=== PATIENT | female | born 1940 | race Caucasian/White ===

== ENCOUNTER 2017-08-03 17:33 | Inpatient (IN) | payer MEDICARE, OTHER ==
[~2017-08-03] VITALS: Ht 167.6 cm; Wt 100.0 kg
[2017-08-03] MEDS ORDERED: normal saline 1000ML IV soln IV ONE (17:35)
[2017-08-03] MEDS ORDERED: methylPREDNISolone sod succ 125mg/2ml vial IV ONE (17:45)
[2017-08-03] MEDS ORDERED: magnesium 2GM in 50ml NS 50 ML IV ONE ×2 (17:45→18:45)
[2017-08-03] MEDS ORDERED: azithromycin/NS 500mg/250ml 250 ML IV ONE (17:55)
[2017-08-03] MEDS ORDERED: CefTRIAXone 2gm/NS 100ml IVPB 100 ML IV ONE (17:55)
[2017-08-03] MEDS ORDERED: ipratropium/albuterol 3ml nebule NEB ONE (18:00)
[2017-08-03 18:24] LABS: BASOPHILS % (AUTO) 0.2 % (0-1); EOSINOPHILS # (AUTO) 0.4 X10'3 (0-0.9); EOSINOPHILS % (AUTO) 2.2 % (0-6); HEMOGLOBIN 12.8 g/dl (12.0-16.0); LYMPHOCYTES # (AUTO) 1.9 X10'3 (1.1-4.8); LYMPHOCYTES % (AUTO) 9.9 % (21-51); MEAN CORPUSCULAR HEMOGLOBIN 24.1 PG (27.0-31.0); MEAN CORPUSCULAR HGB CONC 31.1 % (33.0-36.5); MEAN CORPUSCULAR VOLUME 77.7 FL (78-98); MONOCYTES # (AUTO) 1.4 X10'3 (0-0.9); MONOCYTES % (AUTO) 7.4 % (2-12); NEUTROPHILS # (AUTO) 15.7 X10'3 (1.8-7.7); NEUTROPHILS % (AUTO) 80.3 % (42-75); PLATELET COUNT 408 X10'3 (140-440); RED BLOOD COUNT 5.28 X10'6 (4.20-5.60); RED CELL DISTRIBUTION WIDTH 20.3 % (11.5-14.5); WHITE BLOOD COUNT 19.5 X10'3 (4.5-11.0)
[2017-08-03 18:31] LABS: ABG BASE EXCESS -0.5 mmol/L (-2.0-3.0); ABG HCO3 24.6 mmol/L (22.0-26.0); ABG OXYGEN SATURATION 95.3 % (95-98); ABG PCO2 (T) 42.2 mmHg (32.0-45.0); ABG PH (T) 7.384 (7.350-7.450); ABG PO2 (T) 78.3 mmHg (83-108); ALLEN'S TEST Positive; FCOHb 2.1 % (0.5-1.5); FLOW 5 L/min; FMetHb 0.1 % (0.3-1.12); FO2Hb 93.2 % (94-100); TOTAL HEMOGLOBIN 12.9 G/dl (12.0-16.0)
[2017-08-03 18:32] LABS: PROTHROMBIN TIME 10.8 SECONDS (9.0-12.0)
[2017-08-03] MEDS ORDERED: vancomycin/NS 1 GM ADD-VANTAGE 250 ML IV ONE (18:40)
[2017-08-03 18:50] LABS: ALANINE AMINOTRANSFERASE 25 U/L (12-78); ALBUMIN/GLOBULIN RATIO 0.5 (1.1-1.5); ALKALINE PHOSPHATASE 207 IU/L (46-116); ANION GAP 8 (8-16); ASPARTATE AMINO TRANSFERASE 23 U/L (10-37); BLOOD UREA NITROGEN 38 MG/DL (7-18); BUN/CREATININE RATIO 27.1 (6.6-38.0); CALCIUM 10.7 MG/DL (8.5-10.1); CHLORIDE 96 MMOL/L (99-107); GLUCOSE 143 MG/DL (70-104); MAGNESIUM 1.8 MG/DL (1.5-2.4); POTASSIUM 4.1 MMOL/L (3.5-5.1); SODIUM 133 MMOL/L (135-145); TOTAL CARBON DIOXIDE 28.8 MMOL/L (24-32); TOTAL PROTEIN 8.5 G/DL (6.4-8.2); eGFR 36 ML/MIN
[2017-08-03] MEDS ORDERED: magnesium hydroxide 30ml (MOM) UD suspension PO PRN (19:35)
[2017-08-03] MEDS ORDERED: ondansetron/PF 4mg/2ml inj IV PRN (19:35)
[2017-08-03] MEDS ORDERED: mag hydrox/Alum hydrox/simeth 30ml oral suspension PO PRN (19:35)
[2017-08-03] MEDS ORDERED: acetaminophen 325mg tablet PO PRN (19:35)
[2017-08-03] MEDS ORDERED: albuterol 2.5 MG/3 ML nebule NEB PRN (19:45)
[2017-08-03] MEDS ORDERED: GUAI600T45 PO (19:57)
[2017-08-03] MEDS ORDERED: ATOR40TA PO (19:57)
[2017-08-03] MEDS ORDERED: METF500T PO (19:57)
[2017-08-03] MEDS ORDERED: PANT-47 PO (19:57)
[2017-08-03] MEDS ORDERED: BUDE10.2 INH (19:57)
[2017-08-03 20:00] VITALS: BP 134/80
[2017-08-03 20:32] LABS: CLARITY,URINE Clear (Clear); COLOR,URINE Dark Yellow (Yellow); GLUCOSE, URINE Negative (Neg); KETONES,URINE 15 mg/dl (Neg); LEUKOCYTE ESTERASE ,URINE Negative (Neg); NITRITES, URINE Negative (Neg); OCCULT BLOOD,URINE Negative (Neg); PROTEIN,URINE 100 mg/dl (Neg)
[2017-08-03 20:33] LABS: UA COLLECTION TYPE FOLEY CATH
[2017-08-03 20:42] LABS: AMORPHOUS URATES 4+; BACTERIA,URINE FEW /HPF (Neg); RBC,URINE 0-2 /HPF (0-2); SQUAMOUS EPITHELIAL CELL,UR FEW /LPF (FEW); WBC,URINE 0-4 /HPF (0-4)
[2017-08-03 21:00] VITALS: BP 106/51
[2017-08-03] MEDS: normal saline 1000ml 1,000 ML IV SCH (21:45)
[2017-08-03 23:00] VITALS: BP 104/57
[2017-08-04] MEDS: methylPREDNISolone sod succ/PF 40mg inj. IV SCH ×4 (00:48→23:45)
[2017-08-04] MEDS: heparin, porcine 5000 units/ml vial SQ SCH ×4 (00:48→23:46)
[2017-08-04 07:00] VITALS: BP 133/68
[2017-08-04 07:00] LABS: BASOPHILS % (AUTO) 0.3 % (0-1); EOSINOPHILS # (AUTO) 0.3 X10'3 (0-0.9); HEMATOCRIT 34.4 % (35.0-45.0); HEMOGLOBIN 10.8 g/dl (12.0-16.0); LYMPHOCYTES # (AUTO) 0.3 X10'3 (1.1-4.8); MEAN CORPUSCULAR HEMOGLOBIN 24.1 PG (27.0-31.0); MEAN CORPUSCULAR HGB CONC 31.4 % (33.0-36.5); MEAN CORPUSCULAR VOLUME 76.7 FL (78-98); MEAN PLATELET VOLUME 8.1 FL (7.4-10.4); MONOCYTES # (AUTO) 0.2 X10'3 (0-0.9); MONOCYTES % (AUTO) 1.3 % (2-12); NEUTROPHILS # (AUTO) 13.3 X10'3 (1.8-7.7); NEUTROPHILS % (AUTO) 94.4 % (42-75); PLATELET COUNT 428 X10'3 (140-440); RED BLOOD COUNT 4.49 X10'6 (4.20-5.60); WHITE BLOOD COUNT 14.1 X10'3 (4.5-11.0)
[2017-08-04 07:22] LABS: ALANINE AMINOTRANSFERASE 19 U/L (12-78); ALBUMIN 2.5 G/DL (3.4-5.0); ALBUMIN/GLOBULIN RATIO 0.5 (1.1-1.5); ALKALINE PHOSPHATASE 161 IU/L (46-116); ANION GAP 6 (8-16); ASPARTATE AMINO TRANSFERASE 13 U/L (10-37); BILIRUBIN,TOTAL 0.4 MG/DL (0.1-1.0); BLOOD UREA NITROGEN 32 MG/DL (7-18); BUN/CREATININE RATIO 29.1 (6.6-38.0); CALCIUM 9.8 MG/DL (8.5-10.1); CHLORIDE 100 MMOL/L (99-107); GLUCOSE 299 MG/DL (70-104); POTASSIUM 4.4 MMOL/L (3.5-5.1); SODIUM 135 MMOL/L (135-145); TOTAL CARBON DIOXIDE 28.7 MMOL/L (24-32); TOTAL PROTEIN 7.3 G/DL (6.4-8.2); TROPONIN I < 0.04 NG/ML (0.0-0.05); eGFR 48 ML/MIN
[2017-08-04 07:23] LABS: HEMOGLOBIN A1C 6.6 % (4.5-6.2)
[2017-08-04] MEDS: azithromycin 250mg tablet PO SCH (07:26)
[2017-08-04] MEDS: cefTRIAXone 1g/NS 100ml IVPB 100 ML IV SCH (07:26)
[2017-08-04] MEDS: levoFLOXACIN 250mg tablet PO SCH (07:27)
[2017-08-04] MEDS: HYDROcodone/acetaminophen 5mg/325mg tablet PO PRN ×3 (07:35→23:51)
[2017-08-04] MEDS ORDERED: MESSAGE TO PHARMACY PO ONE (09:35)
[2017-08-04] MEDS ORDERED: dextrose 50%-water 50ml dispensing syringe IV PRN ×2 (09:35)
[2017-08-04] MEDS ORDERED: glucagon, human recombinant 1mg kit SUBCUT PRN (09:35)
[2017-08-04] MEDS ORDERED: dextrose ORAL solution 15 GM/59 ML bottle PO PRN ×2 (09:35)
[2017-08-04 11:00] VITALS: BP 128/63
[2017-08-04] MEDS: insulin Lispro (HumaLOG) vial - multi-dose SQ SCH ×2 (13:37→18:54)
[2017-08-04] MEDS: normal saline 1000ml 1,000 ML IV SCH (15:25)
[2017-08-04 20:00] VITALS: BP 138/77
[2017-08-04] MEDS: insulin glargine (Lantus) pen - multi-dose SQ SCH (21:14)
[2017-08-04] MEDS: guaiFENesin ER 600mg tablet PO SCH (21:14)
[2017-08-04 23:00] VITALS: BP 125/56
[2017-08-05 06:13] LABS: BASOPHILS % (AUTO) 0 % (0-1); EOSINOPHILS # (AUTO) 0.3 X10'3 (0-0.9); HEMATOCRIT 31.6 % (35.0-45.0); HEMOGLOBIN 9.7 g/dl (12.0-16.0); LYMPHOCYTES # (AUTO) 0.4 X10'3 (1.1-4.8); LYMPHOCYTES % (AUTO) 2.9 % (21-51); MEAN CORPUSCULAR HEMOGLOBIN 24.1 PG (27.0-31.0); MEAN CORPUSCULAR HGB CONC 30.7 % (33.0-36.5); MEAN CORPUSCULAR VOLUME 78.4 FL (78-98); MEAN PLATELET VOLUME 8.3 FL (7.4-10.4); MONOCYTES # (AUTO) 0.4 X10'3 (0-0.9); MONOCYTES % (AUTO) 2.9 % (2-12); NEUTROPHILS % (AUTO) 92.2 % (42-75); PLATELET COUNT 353 X10'3 (140-440); RED BLOOD COUNT 4.03 X10'6 (4.20-5.60); RED CELL DISTRIBUTION WIDTH 20.3 % (11.5-14.5)
[2017-08-05 06:45] LABS: ALANINE AMINOTRANSFERASE 18 U/L (12-78); ALBUMIN 2.2 G/DL (3.4-5.0); ALBUMIN/GLOBULIN RATIO 0.5 (1.1-1.5); ALKALINE PHOSPHATASE 125 IU/L (46-116); ANION GAP 5 (8-16); ASPARTATE AMINO TRANSFERASE 11 U/L (10-37); BILIRUBIN,TOTAL 0.2 MG/DL (0.1-1.0); BLOOD UREA NITROGEN 36 MG/DL (7-18); CALCIUM 10.4 MG/DL (8.5-10.1); CHLORIDE 106 MMOL/L (99-107); GLUCOSE 249 MG/DL (70-104); POTASSIUM 4.9 MMOL/L (3.5-5.1); SODIUM 138 MMOL/L (135-145); TOTAL CARBON DIOXIDE 27.1 MMOL/L (24-32); TOTAL PROTEIN 6.8 G/DL (6.4-8.2); eGFR 61 ML/MIN
[2017-08-05] MEDS: pantoprazole 40mg Tablet.DR PO SCH (07:29)
[2017-08-05] MEDS: LACTOBACILLUS RHAMNOSUS GG 15 billion unit sprinkle caps PO SCH (07:29)
[2017-08-05] MEDS: cefTRIAXone 1g/NS 100ml IVPB 100 ML IV SCH (07:29)
[2017-08-05] MEDS: methylPREDNISolone sod succ/PF 40mg inj. IV SCH ×2 (07:30→17:04)
[2017-08-05] MEDS: levoFLOXACIN 250mg tablet PO SCH (07:30)
[2017-08-05] MEDS: guaiFENesin ER 600mg tablet PO SCH ×2 (07:30→20:05)
[2017-08-05] MEDS: azithromycin 250mg tablet PO SCH (07:30)
[2017-08-05] MEDS: heparin, porcine 5000 units/ml vial SQ SCH ×2 (07:31→17:07)
[2017-08-05 07:39] VITALS: BP 121/70
[2017-08-05] MEDS: insulin Lispro (HumaLOG) vial - multi-dose SQ SCH ×3 (09:26→19:10)
[2017-08-05] MEDS: normal saline 1000ml 1,000 ML IV SCH (12:59)
[2017-08-05 13:12] VITALS: BP 121/72
[2017-08-05 19:00] VITALS: BP 152/75
[2017-08-05] MEDS: HYDROcodone/acetaminophen 5mg/325mg tablet PO PRN (20:06)
[2017-08-05] MEDS: nystatin 15 GM powder TP SCH (20:07)
[2017-08-05] MEDS: insulin glargine (Lantus) pen - multi-dose SQ SCH (21:28)
[2017-08-05 23:08] VITALS: BP 148/75
[2017-08-06] MEDS: heparin, porcine 5000 units/ml vial SQ SCH ×3 (00:17→16:28)
[2017-08-06] MEDS: methylPREDNISolone sod succ/PF 40mg inj. IV SCH ×2 (00:17→06:49)
[2017-08-06] MEDS: LACTOBACILLUS RHAMNOSUS GG 15 billion unit sprinkle caps PO SCH (06:49)
[2017-08-06] MEDS: cefTRIAXone 1g/NS 100ml IVPB 100 ML IV SCH (06:49)
[2017-08-06] MEDS: pantoprazole 40mg Tablet.DR PO SCH (06:50)
[2017-08-06] MEDS: levoFLOXACIN 500mg tablet PO SCH (06:50)
[2017-08-06] MEDS: HYDROcodone/acetaminophen 5mg/325mg tablet PO PRN ×3 (06:50→19:21)
[2017-08-06] MEDS: azithromycin 250mg tablet PO SCH (06:50)
[2017-08-06] MEDS: guaiFENesin ER 600mg tablet PO SCH ×2 (06:52→19:12)
[2017-08-06] MEDS: nystatin 15 GM powder TP SCH ×3 (06:52→19:30)
[2017-08-06] MEDS: normal saline 1000ml 1,000 ML IV SCH (06:59)
[2017-08-06 07:00] VITALS: BP 148/70
[2017-08-06 07:01] LABS: ALANINE AMINOTRANSFERASE 17 U/L (12-78); ALBUMIN 2.4 G/DL (3.4-5.0); ALBUMIN/GLOBULIN RATIO 0.5 (1.1-1.5); ALKALINE PHOSPHATASE 119 IU/L (46-116); ANION GAP 6 (8-16); ASPARTATE AMINO TRANSFERASE 11 U/L (10-37); BILIRUBIN,TOTAL 0.2 MG/DL (0.1-1.0); BLOOD UREA NITROGEN 35 MG/DL (7-18); CALCIUM 10.4 MG/DL (8.5-10.1); CHLORIDE 106 MMOL/L (99-107); GLUCOSE 217 MG/DL (70-104); POTASSIUM 4.8 MMOL/L (3.5-5.1); SODIUM 143 MMOL/L (135-145); TOTAL CARBON DIOXIDE 31.5 MMOL/L (24-32); eGFR 54 ML/MIN
[2017-08-06 07:15] LABS: BASOPHILS % (AUTO) 0.1 % (0-1); EOSINOPHILS % (AUTO) 0 % (0-6); HEMOGLOBIN 11.1 g/dl (12.0-16.0); LYMPHOCYTES # (AUTO) 0.5 X10'3 (1.1-4.8); LYMPHOCYTES % (AUTO) 4.1 % (21-51); MEAN CORPUSCULAR HEMOGLOBIN 25.2 PG (27.0-31.0); MEAN CORPUSCULAR HGB CONC 32.6 % (33.0-36.5); MEAN CORPUSCULAR VOLUME 77.4 FL (78-98); MEAN PLATELET VOLUME 8.5 FL (7.4-10.4); MONOCYTES # (AUTO) 0.2 X10'3 (0-0.9); MONOCYTES % (AUTO) 1.9 % (2-12); NEUTROPHILS # (AUTO) 11.8 X10'3 (1.8-7.7); NEUTROPHILS % (AUTO) 93.9 % (42-75); PLATELET COUNT 423 X10'3 (140-440); RED BLOOD COUNT 4.39 X10'6 (4.20-5.60); RED CELL DISTRIBUTION WIDTH 18.8 % (11.5-14.5); WHITE BLOOD COUNT 12.5 X10'3 (4.5-11.0)
[2017-08-06] MEDS: fluticasone/vilanterol 200mcg/25mcg inhaler IH SCH (08:21)
[2017-08-06] MEDS: insulin Lispro (HumaLOG) vial - multi-dose SQ SCH ×3 (08:37→19:20)
[2017-08-06] MEDS: furosemide 40mg/4ml inj IV SCH ×2 (08:57→19:12)
[2017-08-06 11:00] VITALS: BP 128/74
[2017-08-06 19:00] VITALS: BP 119/76
[2017-08-06] MEDS: docusate sod 100mg capsule PO SCH (19:12)
[2017-08-06] MEDS: insulin glargine (Lantus) pen - multi-dose SQ SCH (21:23)
[2017-08-07] VITALS: BP 139/70
[2017-08-07] MEDS: heparin, porcine 5000 units/ml vial SQ SCH ×3 (00:39→17:39)
[2017-08-07 06:08] LABS: BASOPHILS % (AUTO) 0.5 % (0-1); EOSINOPHILS % (AUTO) 0 % (0-6); HEMATOCRIT 37.7 % (35.0-45.0); HEMOGLOBIN 11.7 g/dl (12.0-16.0); LYMPHOCYTES % (AUTO) 9.7 % (21-51); MEAN CORPUSCULAR HEMOGLOBIN 24.1 PG (27.0-31.0); MEAN CORPUSCULAR HGB CONC 31.1 % (33.0-36.5); MEAN CORPUSCULAR VOLUME 77.5 FL (78-98); MEAN PLATELET VOLUME 7.8 FL (7.4-10.4); MONOCYTES # (AUTO) 0.8 X10'3 (0-0.9); MONOCYTES % (AUTO) 8.1 % (2-12); NEUTROPHILS # (AUTO) 8.2 X10'3 (1.8-7.7); NEUTROPHILS % (AUTO) 81.7 % (42-75); PLATELET COUNT 368 X10'3 (140-440); RED BLOOD COUNT 4.87 X10'6 (4.20-5.60); RED CELL DISTRIBUTION WIDTH 19.6 % (11.5-14.5)
[2017-08-07 07:00] VITALS: BP 149/89
[2017-08-07 07:01] LABS: ALANINE AMINOTRANSFERASE 20 U/L (12-78); ALBUMIN 2.5 G/DL (3.4-5.0); ALBUMIN/GLOBULIN RATIO 0.6 (1.1-1.5); ALKALINE PHOSPHATASE 108 IU/L (46-116); ANION GAP 3 (8-16); ASPARTATE AMINO TRANSFERASE 15 U/L (10-37); BILIRUBIN,TOTAL 0.2 MG/DL (0.1-1.0); BLOOD UREA NITROGEN 37 MG/DL (7-18); BUN/CREATININE RATIO 28.5 (6.6-38.0); CALCIUM 10.6 MG/DL (8.5-10.1); CHLORIDE 99 MMOL/L (99-107); GLUCOSE 126 MG/DL (70-104); POTASSIUM 4.5 MMOL/L (3.5-5.1); SODIUM 141 MMOL/L (135-145); TOTAL CARBON DIOXIDE 39.2 MMOL/L (24-32); TOTAL PROTEIN 6.8 G/DL (6.4-8.2); eGFR 40 ML/MIN
[2017-08-07] MEDS: levoFLOXACIN 500mg tablet PO SCH (07:14)
[2017-08-07] MEDS: HYDROcodone/acetaminophen 5mg/325mg tablet PO PRN ×3 (07:14→19:51)
[2017-08-07] MEDS: LACTOBACILLUS RHAMNOSUS GG 15 billion unit sprinkle caps PO SCH (07:14)
[2017-08-07] MEDS: guaiFENesin ER 600mg tablet PO SCH ×2 (07:14→19:51)
[2017-08-07] MEDS: predniSONE 20 mg tablet PO SCH (07:14)
[2017-08-07] MEDS: docusate sod 100mg capsule PO SCH ×2 (07:14→19:51)
[2017-08-07] MEDS: pantoprazole 40mg Tablet.DR PO SCH (07:14)
[2017-08-07] MEDS: cefTRIAXone 1g/NS 100ml IVPB 100 ML IV SCH (07:14)
[2017-08-07] MEDS: nystatin 15 GM powder TP SCH ×3 (07:15→21:11)
[2017-08-07] MEDS: furosemide 40mg/4ml inj IV SCH ×2 (07:15→19:51)
[2017-08-07] MEDS: insulin Lispro (HumaLOG) vial - multi-dose SQ SCH ×3 (08:48→18:44)
[2017-08-07 12:00] VITALS: BP 116/67
[2017-08-07] MEDS: insulin glargine (Lantus) pen - multi-dose SQ SCH (21:10)
[2017-08-08] VITALS: BP 113/79
[2017-08-08] MEDS: heparin, porcine 5000 units/ml vial SQ SCH ×2 (01:09→07:32)
[2017-08-08 05:31] LABS: BASOPHILS % (AUTO) 0.3 % (0-1); EOSINOPHILS # (AUTO) 0.1 X10'3 (0-0.9); EOSINOPHILS % (AUTO) 1.3 % (0-6); HEMATOCRIT 39.5 % (35.0-45.0); HEMOGLOBIN 12.4 g/dl (12.0-16.0); LYMPHOCYTES # (AUTO) 1.4 X10'3 (1.1-4.8); LYMPHOCYTES % (AUTO) 14.1 % (21-51); MEAN CORPUSCULAR HEMOGLOBIN 24.1 PG (27.0-31.0); MEAN CORPUSCULAR HGB CONC 31.3 % (33.0-36.5); MEAN CORPUSCULAR VOLUME 77.1 FL (78-98); MEAN PLATELET VOLUME 8.3 FL (7.4-10.4); MONOCYTES # (AUTO) 0.9 X10'3 (0-0.9); MONOCYTES % (AUTO) 9.5 % (2-12); NEUTROPHILS # (AUTO) 7.4 X10'3 (1.8-7.7); NEUTROPHILS % (AUTO) 74.8 % (42-75); PLATELET COUNT 392 X10'3 (140-440); RED BLOOD COUNT 5.12 X10'6 (4.20-5.60); RED CELL DISTRIBUTION WIDTH 19.6 % (11.5-14.5); WHITE BLOOD COUNT 9.9 X10'3 (4.5-11.0)
[2017-08-08 06:25] LABS: ALANINE AMINOTRANSFERASE 21 U/L (12-78); ALBUMIN 2.6 G/DL (3.4-5.0); ALBUMIN/GLOBULIN RATIO 0.6 (1.1-1.5); ALKALINE PHOSPHATASE 103 IU/L (46-116); ANION GAP 4 (8-16); ASPARTATE AMINO TRANSFERASE 17 U/L (10-37); BLOOD UREA NITROGEN 43 MG/DL (7-18); BUN/CREATININE RATIO 35.8 (6.6-38.0); CALCIUM 10.8 MG/DL (8.5-10.1); CHLORIDE 95 MMOL/L (99-107); GLUCOSE 183 MG/DL (70-104); POTASSIUM 3.9 MMOL/L (3.5-5.1); SODIUM 139 MMOL/L (135-145); TOTAL PROTEIN 6.8 G/DL (6.4-8.2); eGFR 44 ML/MIN
[2017-08-08 07:00] VITALS: BP 115/71
[2017-08-08] MEDS: cefTRIAXone 1g/NS 100ml IVPB 100 ML IV SCH (07:31)
[2017-08-08] MEDS: furosemide 40mg/4ml inj IV SCH (07:31)
[2017-08-08] MEDS: nystatin 15 GM powder TP SCH ×2 (07:32→13:25)
[2017-08-08] MEDS: pantoprazole 40mg Tablet.DR PO SCH (07:32)
[2017-08-08] MEDS: LACTOBACILLUS RHAMNOSUS GG 15 billion unit sprinkle caps PO SCH (07:32)
[2017-08-08] MEDS: guaiFENesin ER 600mg tablet PO SCH (07:32)
[2017-08-08] MEDS: docusate sod 100mg capsule PO SCH (07:32)
[2017-08-08] MEDS: predniSONE 20 mg tablet PO SCH (07:32)
[2017-08-08] MEDS: insulin Lispro (HumaLOG) vial - multi-dose SQ SCH ×2 (09:33→13:25)
[2017-08-08] MEDS: fluticasone/vilanterol 200mcg/25mcg inhaler IH SCH (09:54)
[2017-08-08] MEDS ORDERED: levoFLOXACIN 250mg tablet PO SCH (11:00)
[2017-08-09] MEDS ORDERED: furosemide 40mg/4ml inj IV SCH (08:00)
== END 2017-08-08 14:02 | DRG 871 ==
LOC: ER 17:34 → ED HOLD 19:33 → EDBEDREQ 20:09 → MED 3N 20:15
PROVIDERS: ADMIT Internal Medicine; ATTEND Family Medicine
DX: A41.9 Sepsis, unspecified organism (principal); I50.33 Acute on chronic diastolic (congestive) heart failure; J96.01 Acute respiratory failure with hypoxia; J18.1 Lobar pneumonia, unspecified organism; J44.0 Chronic obstructive pulmonary disease with (acute) lower respiratory infection; E11.22 Type 2 diabetes mellitus with diabetic chronic kidney disease; I48.91 Unspecified atrial fibrillation; D64.9 Anemia, unspecified; E87.1 Hypo-osmolality and hyponatremia; J45.41 Moderate persistent asthma with (acute) exacerbation; J44.1 Chronic obstructive pulmonary disease with (acute) exacerbation; N18.9 Chronic kidney disease, unspecified; Z88.0 Allergy status to penicillin; Z88.6 Allergy status to analgesic agent; Z79.899 Other long term (current) drug therapy; Z79.84 Long term (current) use of oral hypoglycemic drugs; Z87.891 Personal history of nicotine dependence
CPT/HCPCS: 36415; 36600; 71045; 80053; 81001; 82803; 82948; 83036; 83605; 83735; 83880; 84145; 84484; 85018; 85025; 85610; 87040; 87070; 87502; 87503; 93005; 93306; 94640; 94760; 96365; 96368; 96375; 97110; 97116; 97162; 97530; 99285; J0696; J1644; J1815; J1940; J2920; J2930; J3370; J3475; J7030; J7512